=== PATIENT | male | born 1925 | race Caucasian/White ===

== ENCOUNTER 2016-11-08 13:59 | Inpatient (IN) | payer MEDICARE, OTHER ==
[~2016-11-08] VITALS: Ht 175.3 cm; Wt 79.8 kg
[~2016-11-08 13:59] MED LIST: ACET325T14 PO; ASPI-496 PO; ASPI-650 PO; CALC-126 PO; CARV6.252 PO; CEFU500T PO; CLOP75TA PO; GINK120C PO; GLUC1TAB55 PO; HYDR-3237 PO; INSU100I18 SQ-INSULIN; KRIL500C PO; LEVO125T PO; LEVO150T5 PO; METF500T4 PO; MULT-658 PO; PROBIOTIC; SENN1TAB67 PO; SIMV40TA3 PO; UBID100C PO; UBID30CA9 PO
[2016-11-08] MEDS ORDERED: SODIUM CHLORIDE 0.9% 1,000 ML IV ONE (14:31)
[2016-11-08] MEDS ORDERED: SODIUM CHLORIDE 0.9% 1,000ML IVBOLUS ONE (15:00)
[2016-11-08] MEDS ORDERED: PIPERACILLIN/TAZO/PMX 3.375GM 50 ML IV ONE (15:30)
[2016-11-08 15:35] LABS: HEMATOCRIT 40.5 % (39.2-51.8); WHITE BLOOD COUNT 10.9 x10^3/uL (3.4-10)
[2016-11-08] MEDS ORDERED: PIPERACILLIN/TAZO/PMX 3.375GM 50 ML ONE (15:41)
[2016-11-08 15:53] LABS: ASPARTATE AMINO TRANSFERASE 28 U/L (15-37); BLOOD UREA NITROGEN 25 mg/dL (7-18); IS PT STATUS REG ER OR PRE ER? YES
[2016-11-08 16:24] LABS: PATH.CAST-FLAG NOT PRESENT; SPERM-FLAG NOT PRESENT; SRC-FLAG NOT PRESENT; XTAL-FLAG NOT PRESENT; YLC-FLAG NOT PRESENT
[2016-11-08 17:52] VITALS: BP 135/76
[2016-11-08] MEDS ORDERED: GLIMEPIRIDE PO (18:12)
[2016-11-08] MEDS ORDERED: ASPI-496 PO (18:12)
[2016-11-08] MEDS ORDERED: DUTA0.5C PO (18:12)
[2016-11-08] MEDS ORDERED: ATOR20TA PO (18:12)
[2016-11-08 18:58] VITALS: BP 115/74
[2016-11-08] MEDS ORDERED: POLYETHYLENE GLYCOL 17 GM PACKET PO PRN (19:00)
[2016-11-08] MEDS ORDERED: ACETAMINOPHEN 325 MG TABLET PO PRN (19:00)
[2016-11-08] MEDS ORDERED: BISACODYL 10 MG SUPP PR PRN (19:00)
[2016-11-08] MEDS ORDERED: GLUCAGON 1 MG IM PRN (19:00)
[2016-11-08] MEDS ORDERED: DOCUSATE 100 MG CAPSULE PO PRN (19:00)
[2016-11-08] MEDS ORDERED: DEXTROSE 50%, 50ML SYRINGE IVPush PRN (19:00)
[2016-11-08] MEDS ORDERED: DEXTROSE 4 GM TAB.CHEW PO PRN (19:00)
[2016-11-08] MEDS: SODIUM CHLORIDE 0.9% 1,000 ML IV SCH (20:14)
[2016-11-08] MEDS: CEFTRIAXONE PMX 1GM/50ML 50 ML IV SCH (20:14)
[2016-11-08] MEDS: ATORVASTATIN 20 MG TABLET PO SCH ×2 (21:00→21:24)
[2016-11-08] MEDS: INSULIN ASPART 100 UNITS/ML, PEN SQ-INSULIN SCH (21:00)
[2016-11-08] MEDS: ENOXAPARIN 40 MG/0.4 ML SQ SCH (21:24)
[2016-11-08] MEDS: ASPIRIN 81 MG TABLET EC PO SCH (21:24)
[2016-11-08] MEDS: SODIUM CHLORIDE FLUSH 10ML SYR IVF SCH (21:25)
[2016-11-09 00:28] VITALS: BP 130/75
[2016-11-09] MEDS: SODIUM CHLORIDE 0.9% 1,000 ML IV SCH (05:23)
[2016-11-09] MEDS: LEVOTHYROXINE 125 MCG TABLET PO SCH (05:24)
[2016-11-09 06:00] LABS: HEMATOCRIT 35.9 % (39.2-51.8); HEMOGLOBIN 12.4 g/dL (13.7-18.0); WHITE BLOOD COUNT 7.4 x10^3/uL (3.4-10)
[2016-11-09] MEDS ORDERED: CARVEDILOL 6.25 MG TABLET PO SCH (06:00)
[2016-11-09 06:03] LABS: BLOOD UREA NITROGEN 20 mg/dL (7-18)
[2016-11-09 06:16] LABS: ASPARTATE AMINO TRANSFERASE 27 U/L (15-37)
[2016-11-09] MEDS: INSULIN ASPART 100 UNITS/ML, PEN SQ-INSULIN SCH ×4 (07:00→20:25)
[2016-11-09 07:07] VITALS: BP 128/80
[2016-11-09] MEDS: MULTIVITAMIN 1 TABLET PO SCH (08:57)
[2016-11-09] MEDS: CLOPIDOGREL 75 MG TABLET PO SCH (08:57)
[2016-11-09] MEDS: SODIUM CHLORIDE FLUSH 10ML SYR IVF SCH ×2 (08:58→20:16)
[2016-11-09 15:12] VITALS: BP 137/79
[2016-11-09 20:00] VITALS: BP 136/62
[2016-11-09] MEDS: ASPIRIN 81 MG TABLET EC PO SCH (20:15)
[2016-11-09] MEDS: ENOXAPARIN 40 MG/0.4 ML SQ SCH (20:15)
[2016-11-09] MEDS: ATORVASTATIN 20 MG TABLET PO SCH ×2 (20:15→20:16)
[2016-11-09] MEDS: CEFTRIAXONE PMX 1GM/50ML 50 ML IV SCH (20:16)
[2016-11-10 02:00] VITALS: BP 153/75
[2016-11-10 06:08] LABS: HEMATOCRIT 38.1 % (39.2-51.8); WHITE BLOOD COUNT 6.6 x10^3/uL (3.4-10)
[2016-11-10] MEDS: LEVOTHYROXINE 125 MCG TABLET PO SCH (06:11)
[2016-11-10] MEDS: INSULIN ASPART 100 UNITS/ML, PEN SQ-INSULIN SCH ×4 (07:00→20:38)
[2016-11-10] MEDS: SODIUM CHLORIDE FLUSH 10ML SYR IVF SCH ×2 (08:27→20:38)
[2016-11-10] MEDS: MULTIVITAMIN 1 TABLET PO SCH (08:27)
[2016-11-10] MEDS: CLOPIDOGREL 75 MG TABLET PO SCH (08:27)
[2016-11-10 08:45] VITALS: BP 125/81
[2016-11-10 16:33] VITALS: BP 170/73
[2016-11-10 18:23] VITALS: BP 138/72
[2016-11-10 20:10] VITALS: BP_SYST 165; BP_SYST 174; BP_DIAS 82; BP_DIAS 89
[2016-11-10] MEDS: CEFTRIAXONE PMX 1GM/50ML 50 ML IV SCH (20:35)
[2016-11-10] MEDS: ASPIRIN 81 MG TABLET EC PO SCH (20:40)
[2016-11-10] MEDS: ATORVASTATIN 20 MG TABLET PO SCH ×2 (20:41)
[2016-11-10] MEDS: ENOXAPARIN 40 MG/0.4 ML SQ SCH (22:32)
[2016-11-11 00:45] VITALS: BP 140/83
[2016-11-11] MEDS: LEVOTHYROXINE 125 MCG TABLET PO SCH (05:34)
[2016-11-11 05:58] LABS: HEMATOCRIT 40.9 % (39.2-51.8); HEMOGLOBIN 13.8 g/dL (13.7-18.0); WHITE BLOOD COUNT 6.3 x10^3/uL (3.4-10)
[2016-11-11 06:27] LABS: BLOOD UREA NITROGEN 15 mg/dL (7-18)
[2016-11-11 06:53] VITALS: BP 131/76
[2016-11-11] MEDS: INSULIN ASPART 100 UNITS/ML, PEN SQ-INSULIN SCH (07:00)
[2016-11-11] MEDS: SODIUM CHLORIDE FLUSH 10ML SYR IVF SCH (08:58)
[2016-11-11] MEDS: MULTIVITAMIN 1 TABLET PO SCH (08:58)
[2016-11-11] MEDS: CLOPIDOGREL 75 MG TABLET PO SCH (09:01)
[2016-11-11] MEDS ORDERED: SULF1TAB24 PO (09:48)
[2016-11-11] MEDS ORDERED: LEVO150T5 PO (20:33)
== END 2016-11-11 10:50 | disposition home or self-care (01) | DRG 871 ==
LOC: ED 15:46 → EDIP 16:17 → 4WST 17:54 → DCLOUNGE 11-11 10:36
PROVIDERS: ADMIT Internal Medicine; ATTEND Internal Medicine
PROC: 0T9B70Z Drainage of Bladder with Drainage Device, Via Natural or Artificial Opening (ICD-10-PCS; principal; 2016-11-08)
DX: A41.9 Sepsis, unspecified organism (principal); G93.41 Metabolic encephalopathy; F03.90 Unspecified dementia, unspecified severity, without behavioral disturbance, psychotic disturbance, mood disturbance, and anxiety; I11.0 Hypertensive heart disease with heart failure; I50.32 Chronic diastolic (congestive) heart failure; R56.9 Unspecified convulsions; N39.0 Urinary tract infection, site not specified; E11.9 Type 2 diabetes mellitus without complications; E03.9 Hypothyroidism, unspecified; E78.5 Hyperlipidemia, unspecified; G89.29 Other chronic pain; I25.10 Atherosclerotic heart disease of native coronary artery without angina pectoris; I73.9 Peripheral vascular disease, unspecified; N35.9 Urethral stricture, unspecified; N40.0 Benign prostatic hyperplasia without lower urinary tract symptoms; R65.20 Severe sepsis without septic shock; Z86.73 Personal history of transient ischemic attack (TIA), and cerebral infarction without residual deficits; Z86.79 Personal history of other diseases of the circulatory system; Z87.440 Personal history of urinary (tract) infections; Z87.891 Personal history of nicotine dependence
CPT/HCPCS: 36415; 70450; 71010; 80048; 80053; 81001; 82962; 83036; 83605; 83735; 84100; 84145; 84439; 84443; 84484; 85025; 87040; 87077; 87086; 87186; 93005; 96361; 96365; J0696; J1650; J2543; J7030

== ENCOUNTER 2016-11-11 18:25 | Emergency (ER) | payer MEDICARE, OTHER ==
[~2016-11-11] VITALS: Ht 175.3 cm; Wt 80.1 kg
[~2016-11-11 18:25] MED LIST changes: +ATOR20TA PO; +DUTA0.5C PO; +GLIMEPIRIDE PO; +SULF1TAB24 PO
[2016-11-11 18:35] VITALS: BP 146/86
[2016-11-11] MEDS ORDERED: SODIUM CHLORIDE FLUSH 10ML SYR IVF ONE (19:00)
[2016-11-11 19:26] LABS: HEMATOCRIT 44.9 % (39.2-51.8); HEMOGLOBIN 15.3 g/dL (13.7-18.0); WHITE BLOOD COUNT 7.4 x10^3/uL (3.4-10)
[2016-11-11 19:27] LABS: BLOOD UREA NITROGEN 23 mg/dL (7-18)
[2016-11-11 19:30] LABS: ASPARTATE AMINO TRANSFERASE 27 U/L (15-37)
[2016-11-11 19:56] LABS: PATH.CAST-FLAG NOT PRESENT; SPERM-FLAG NOT PRESENT; SRC-FLAG NOT PRESENT; XTAL-FLAG NOT PRESENT; YLC-FLAG NOT PRESENT
[2016-11-11] MEDS ORDERED: LEVO150T5 PO (20:33)
== END 2016-11-11 21:26 | disposition home or self-care (01) ==
LOC: ED 21:16
DX: N30.00 Acute cystitis without hematuria (principal); R79.89 Other specified abnormal findings of blood chemistry; I11.9 Hypertensive heart disease without heart failure; E11.9 Type 2 diabetes mellitus without complications; I25.10 Atherosclerotic heart disease of native coronary artery without angina pectoris; Z86.73 Personal history of transient ischemic attack (TIA), and cerebral infarction without residual deficits
CPT/HCPCS: 36415; 80053; 81001; 85025; 93005; 99285